=== PATIENT | female | born 1995 | race Hispanic/Latino ===

== ENCOUNTER 2018-11-12 09:26 | Emergency (ER) | payer SELFPAY ==
[2018-11-12] MEDS ORDERED: ONDANSETRON ODT 4 MG TAB ONE (09:56)
[2018-11-12] MEDS ORDERED: DICYCLOMINE HCL 20 MG TAB ONE (09:56)
[2018-11-12 10:12] LABS: BASOPHILS % (AUTO) 0.6 % (0.0-5.0); EOSINOPHILS % (AUTO) 4.4 % (0.0-8.0); HEMATOCRIT 41.4 % (36-48); LYMPHOCYTES % (AUTO) 21.3 % (21.0-51.0); MEAN CORPUSCULAR HEMOGLOBIN 31.5 pg (27.0-33.0); MEAN CORPUSCULAR HGB CONC 35.6 g/dL (32.0-36.0); MEAN CORPUSCULAR VOLUME 88.4 fL (79-99); MONOCYTES % (AUTO) 7.7 % (3.0-13.0); PLATELET COUNT (AUTO) 254 K/uL (130-400); RED BLOOD CELL COUNT(AUTO) 4.68 MIL/uL (4.00-5.50); RED CELL DISTRIBUTION WIDTH 12.4 % (11.0-15.5)
[2018-11-12 10:21] LABS: CREATININE 0.8 mg/dL (0.5-1.5); POTASSIUM 3.6 mmol/L (3.5-5.1)
[2018-11-12 10:25] LABS: APPEARANCE,URINE Cloudy (CLEAR); BILIRUBIN,URINE Negative (NEGATIVE); COLOR,URINE Yellow (YELLOW); GLUCOSE, URINE (UA) Negative (NEGATIVE); KETONES,URINE Negative (NEGATIVE); LEUKOCYTE ESTERASE ,URINE Trace (NEGATIVE); NITRATE,URINE Negative (NEGATIVE); OCCULT BLOOD,URINE Negative (NEGATIVE); PH,URINE >=9.0 (5.0-8.0); PROTEIN,URINE Trace (NEGATIVE)
[2018-11-12 10:31] LABS: ALBUMIN 3.7 g/dL (3.5-5.0); BILIRUBIN,TOTAL 0.1 mg/dL (0.2-1.0); TOTAL PROTEIN, SERUM 8.1 g/dL (6.0-8.3)
[2018-11-12 10:59] LABS: BACTERIA,URINE Few /HPF (None Seen); RBC,URINE None Seen /HPF (0-1); SQUAMOUS EPITHELIAL CELL,UR Many /HPF (0-2)
[2018-11-12 11:00] LABS: MUCUS,URINE Few LPF (None Seen)
== END 2018-11-12 11:34 | disposition home or self-care (01) ==
LOC: EDH 09:26
DX: J06.9 Acute upper respiratory infection, unspecified (principal); R10.84 Generalized abdominal pain; F41.9 Anxiety disorder, unspecified; F31.9 Bipolar disorder, unspecified
CPT/HCPCS: 36415; 80053; 81001; 83690; 84702; 85025; 87804

== ENCOUNTER 2025-02-25 08:08 | Emergency (ER) | payer SELFPAY ==
[~2025-02-25] VITALS: Ht 162.6 cm; Wt 113.4 kg
--- NOTE | 2025-02-25 09:06 | HMCIMG ---
LEFT KNEE RADIOGRAPHS - 3 VIEWS INDICATION: Pain COMPARISON: None FINDINGS: AP, lateral, and oblique views. No fracture or dislocation identified. No significant joint effusion is present. Overlying soft tissues appear normal. Distal left femoral fixation plates and screws appear normal. IMPRESSION: No evidence for fracture or dislocation.
[2025-02-25] MEDS ORDERED: NAPR-1196 PO (09:29)
[2025-02-25 09:30] VITALS: BP 115/76; PULSE 88; RESP 16; TEMP 97.9; O2SAT 98
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
== END 2025-02-25 09:32 | disposition home or self-care (01) ==
LOC: EDH 08:08
DX: S80.02XA Contusion of left knee, initial encounter (principal); W51.XXXA Accidental striking against or bumped into by another person, initial encounter; Y93.89 Activity, other specified; Y92.89 Other specified places as the place of occurrence of the external cause; Y99.8 Other external cause status
CPT/HCPCS: 73562; 99283

== ENCOUNTER 2025-05-26 02:11 | Emergency (ER) | payer SELFPAY ==
[~2025-05-26] VITALS: Ht 162.6 cm; Wt 115.7 kg
[~2025-05-26 02:11] MED LIST: NAPR-1196 PO
[2025-05-26 02:12] VITALS: BP 129/90; PULSE 96; RESP 20; TEMP 97.8
[2025-05-26 02:44] LABS: IMMATURE GRANULOCYTE ABSOLUTE 0.01 K/uL (0-1); NUCLEATED RED BLOOD CELLS 0.0 % (0.0-0.19); PLATELET COUNT (AUTO) 313 K/uL (130-400); RED BLOOD CELL COUNT(AUTO) 4.63 MIL/uL (4.00-5.50); RED CELL DISTRIBUTION WIDTH 13.2 % (11.0-15.5); WHITE BLOOD COUNT (AUTO) 5.5 K/uL (4.8-10.8)
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
[2025-05-26 02:54] LABS: CREATININE 0.6 mg/dL (0.5-1.0); GLOMERULAR FILTR. RATE CALC 125 mL/min (>90); GLUCOSE,RANDOM 107 mg/dL (70-105); SODIUM SERUM 139 mmol/L (136-145); UREA NITROGEN, BLOOD 12 mg/dL (7-18)
[2025-05-26 02:59] LABS: ALCOHOL, BLOOD < 3 mg/dL (0-10); CREATINE KINASE, TOTAL 199 U/L (21-232)
--- NOTE | 2025-05-26 03:23 | NUR ---
PATIENT STATING HER RIDE IS HERE TO PICK HER UP, DOES NOT WISH TO STAY. PATIENT DENIES SI/HI, DENIES A/V HALLUCINATIONS AT THIS TIME. PATIENT STATES SHE HAS BEEN VERY EMOTIONAL AND DID HAVE SI EARLIER, BUT WOULD NOT TRY TO HURT HERSELF. DR SAINI EXPLAINED ALL RISKS OF LEAVING AMA INCLUDING , ENCOURAGED PATIENT TO STAY AND SPEAK TO A SCREENER. PATIENT STATES SHE HAS TO LEAVE NOW OR ELSE SHE WON'T HAVE A RIDE LATER. PATIENT REFUSES TO STAY AND BE SEEN BY [facility]. PATIENT VERBALIZED UNDERSTANDING OF ALL RISKS OF LEAVING AMA INCLUDING , SIGNED AMA FORM.
--- NOTE | 2025-05-26 03:26 | NUR ---
pt seen walking out er lobby doors
[2025-05-26 03:34] LABS: AMPHET/METH SCREEN,URINE POSITIVE (NEGATIVE); BARBITURATE SCREEN, URINE NEGATIVE (NEGATIVE); CANNABINOID SCREEN,URINE POSITIVE (NEGATIVE); COCAINE SCREEN,URINE POSITIVE (NEGATIVE)
[2025-05-26 03:35] LABS: APPEARANCE,URINE CLOUDY (CLEAR); GLUCOSE, URINE (UA) NEGATIVE (NEGATIVE); LEUKOCYTE ESTERASE ,URINE 25 Leu/uL (NEGATIVE); NITRATE,URINE NEGATIVE (NEGATIVE); OCCULT BLOOD,URINE NEGATIVE (NEGATIVE)
[2025-05-26 03:36] LABS: ADD UA MICROSCOPIC YES
[2025-05-26 03:38] LABS: SQUAMOUS EPITHELIAL CELL,UR MANY /HPF (0-2)
== END 2025-05-26 03:26 | disposition left against medical advice (07) ==
LOC: EDH 02:11
DX: R45.851 Suicidal ideations (principal); F32.A Depression, unspecified; Z79.899 Other long term (current) drug therapy
CPT/HCPCS: 99285; 82550; 80048; 80305; 84703; 85025; 87086; 36415; 81001; Q0163; G0481